=== PATIENT | male | born 1925 | race Caucasian/White ===

== ENCOUNTER 2017-01-02 07:28 | Day surgery (SDC) | payer BC ==
--- NOTE | ~2017-01-02 | EGD ---
EGD REPORT [facility] [address] [address] NAME: PATRIC ERIC : [birth year] STATUS : REG [employer] PAT#: [id number] AGE: 89 ADM/REG DATE : 01/02/17 MR#: [id number] REPORT SERV DATE: 01/02/17 DICTATED BY: JUSTINE GALLOWAY DATE: 01/02/17 REPORT STATUS : Draft [facility]ANS[facility]IBED BY: [facility] DATE: 01/02/17 [facility] Patient Name: Patric Eric Date of : 1925 Attending MD: JUSTINE GALLOWAY MD Procedure Date No Time: 01/02/2017 Procedure: Colonoscopy Indications: Constipation, Rectal pain Referring MD: YORDAN YAÑEZ III, MD, DEQUAN MENDEZ MD Medicines: as per anesthesia Complications: No immediate complications. Procedure: Pre-Anesthesia Assessment: - ASA Grade Assessment: III - A patient with severe systemic disease. After I obtained informed consent, the scope was passed under direct vision. Throughout the procedure, the patient's blood pressure, pulse, and oxygen saturations were monitored continuously. The PCF [id number] was introduced through the anus and advanced to the cecum, identified by appendiceal orifice and ileocecal valve. The colonoscopy was performed without difficulty. The patient tolerated the procedure. The quality of the bowel preparation was adequate to identify polyps. Findings: The perianal and digital rectal examinations were normal. A sessile polyp was found in the cecum. The polyp was 6 mm in size. The polyp was removed with a jumbo cold forceps. Resection and retrieval were complete. A sessile polyp was found in the ascending colon. The polyp was 6 mm in size. The polyp was removed with a jumbo cold forceps. Resection and retrieval were complete. A pedunculated polyp was found in the distal sigmoid colon. The polyp was 12 mm in size. The polyp was removed with a hot snare. Resection and retrieval were complete. some oozing at site which resolved Internal hemorrhoids were found during endoscopy and were mild. Impression: - One 6 mm polyp in the cecum. Resected and retrieved. - One 6 mm polyp in the ascending colon. Resected and retrieved. - One 12 mm polyp in the distal sigmoid colon. Resected and retrieved. - Internal hemorrhoids. EGD REPORT [address] [address] NAME: PATRIC ERIC : [birth year] STATUS : REG [employer] [employer] PAT#: [id number] AGE: 89 ADM/REG DATE : 01/02/17 MR#: [id number] REPORT SERV DATE: 01/02/17 DICTATED BY: JUSTINE GALLOWAY DATE: 01/02/17 REPORT STATUS : Draft TRANSCRIBED BY: [employer] DATE: 01/02/17 Recommendation: - Clear liquid diet today. - Full liquid diet for 1 day. - Soft diet. Procedure Code(s): --- Professional --- 27382, Colonoscopy, flexible, proximal to splenic flexure; with removal of tumor(s), polyp(s), or other lesion(s) by snare technique 36658, 59, Colonoscopy, flexible, proximal to splenic flexure; with biopsy, single or multiple Diagnosis Code(s): --- Professional --- D12.5, Benign neoplasm of sigmoid colon D12.2, Benign neoplasm of ascending colon D12.0, Benign neoplasm of cecum K64.8, Other hemorrhoids K59.00, Constipation, unspecified K62.89, Other specified diseases of anus and rectum CPT copyright 2013 [employer]. All rights reserved. The codes documented in this report are preliminary and upon fuel agent review may be revised to meet current compliance requirements. JUSTINE GALLOWAY MD 01/02/2017 10:46 AM This report has been signed electronically. Number of Addenda: 0 Note Initiated On: 01/02/2017 9:29 AM Scope Withdrawal Time 0 hours 49 minutes 50 seconds [id number] [id number]
[~2017-01-02 07:28] MED LIST: ATEN50 PO; CENTRUM PO; CYANO1000T PO; DITRO5 PO; EYE CAPS; MAX25 PO; MEVACOR40 MG PO; MULTIPLE VIT PO; NXL3 PO; OCUVITE PO; PRESERVISION A1 EACH PO; VESICARE10 MG PO; VITD PO; VITE PO
== END 2017-01-02 23:59 | disposition home or self-care (01) ==
LOC: DMU 07:28
PROVIDERS: Internal Medicine Gastroenterology
PROC: 0DBK8ZZ Excision of Ascending Colon, Via Natural or Artificial Opening Endoscopic (ICD-10-PCS; 2017-01-02)
PROC: 0DBH8ZZ Excision of Cecum, Via Natural or Artificial Opening Endoscopic (ICD-10-PCS; principal; 2017-01-02 09:00)
PROC: 0DBN8ZZ Excision of Sigmoid Colon, Via Natural or Artificial Opening Endoscopic (ICD-10-PCS; 2017-01-02 09:00)
DX: D12.0 Benign neoplasm of cecum (principal); D12.2 Benign neoplasm of ascending colon; D12.5 Benign neoplasm of sigmoid colon; I10 Essential (primary) hypertension; H35.62 Retinal hemorrhage, left eye; H54.42 Blindness, left eye, normal vision right eye; K62.4 Stenosis of anus and rectum; H26.9 Unspecified cataract; Z85.46 Personal history of malignant neoplasm of prostate; Z79.899 Other long term (current) drug therapy; Z98.890 Other specified postprocedural states
CPT/HCPCS: 88305